=== PATIENT | male | born 1940 | race Caucasian/White ===

== ENCOUNTER 2018-01-20 10:42 | Inpatient (IN) | payer MEDICARE, OTHER ==
[~2018-01-20] VITALS: Ht 182.9 cm; Wt 107.2 kg
[2018-01-20] MEDS ORDERED: KETOROLAC TROMETH 30 MG/ML 1ML VIAL IV ONE (14:30)
[2018-01-20] MEDS ORDERED: CLINDAMYCIN 600MG IV 50 ML IV ONE (14:30)
[2018-01-20 15:07] LABS: Basophils # (auto) 0 uL; Basophils % (auto) 0.2 % (0.0-2.0); Eosinophils # (auto) 0 uL; Eosinophils % (auto) 0.3 % (0.0-7.0); Hematocrit 32.2 % (41.0-53.0); Hemoglobin 10.9 g/dL (13.5-17.5); Lymphocytes # (auto) 1.7 uL; Lymphocytes % (auto) 10.7 % (10.0-50.0); Mean Corpuscular Hgb Conc. 33.9 g/dL (32.0-36.0); Mean Corpuscular Volume 91.3 fL (80.0-100.0); Monocytes # (auto) 1.3 uL; Monocytes % (auto) 8.1 % (0.0-12.0); Neutrophils # (auto) 13.1 uL; Neutrophils % (auto) 80.7 % (37.0-80.0); Platelet Count (auto) 253 10^3/uL (140-450); Red Blood Cells 3.53 10^6/uL (4.5-5.90); Red Cell Distribution Width 13.9 % (11.8-14.3); White Blood Cell 16.2 10^3/uL (4.4-10.8)
[2018-01-20 15:09] LABS: Urine Bacteria NONE SEEN /hpf (None Seen); Urine Blood Negative /uL (Negative); Urine Mucus FEW (None Seen); Urine Specific Gravity 1.007 (1.001-1.035); Urine WBC <1 /hpf (0 - 3)
[2018-01-20 15:16] LABS: INR 0.92 (0.9-1.15); Partial Thromboplastin Time 31.5 sec (23.78-33.04); Prothrombin Time 9.9 sec (9.27-12.13)
[2018-01-20 15:24] LABS: BUN/Creatinine Ratio 24.8; Bilirubin, Total 0.6 mg/dL (0.2-1.0); Calcium 8.4 mg/dL (8.5-10.1); Magnesium 2.2 mg/dL (1.6-2.6); Total Protein 7.6 g/dL (6.4-8.2); Uric Acid 10.2 mg/dL (3.5-7.2)
[2018-01-20] MEDS ORDERED: cefTRIAXone 1GM/10ml IVPUSH 10 ML IV ONE (17:00)
[2018-01-20] MEDS ORDERED: POTASSIUM EFFERVESENT TAB 25 MEQ PO ONE (17:00)
[2018-01-20] MEDS ORDERED: AZITHROMYCIN 500MG/ 250ML 250 ML IV ONE (17:45)
[2018-01-20] MEDS ORDERED: ACETAMINOPHEN 325 MG TAB PO PRN (19:45)
[2018-01-20] MEDS ORDERED: DEXTROSE (50%) 50ML SYRG IV PRN (19:45)
[2018-01-20] MEDS ORDERED: cloNIDine HCL 0.1 MG TAB PO PRN (19:45)
[2018-01-20 22:20] VITALS: BP 146/70
[2018-01-21] MEDS: CLINDAMYCIN 600MG IV 50 ML IV SCH ×4 (00:42→22:09)
[2018-01-21] MEDS: InsuLIN REG 1unit/0.01ml Soln (100units/ml) SC SCH ×4 (01:06→18:59)
[2018-01-21 04:41] VITALS: BP 148/66
[2018-01-21] MEDS: HYDROcodone-ACET 5/325MG TAB PO PRN ×3 (04:54→20:16)
[2018-01-21] MEDS: ACCU-CHEK COMFORT CURVE STRIP VI SCH ×4 (05:49→18:59)
[2018-01-21 06:59] LABS: Basophils # (auto) 0 uL; Basophils % (auto) 0.1 % (0.0-2.0); Eosinophils # (auto) 0 uL; Eosinophils % (auto) 0.1 % (0.0-7.0); Hematocrit 27.7 % (41.0-53.0); Hemoglobin 9.5 g/dL (13.5-17.5); Lymphocytes # (auto) 1.1 uL; Lymphocytes % (auto) 6.9 % (10.0-50.0); Mean Corpuscular Hemoglobin 31.7 pg (28.0-32.0); Mean Corpuscular Hgb Conc. 34.4 g/dL (32.0-36.0); Monocytes # (auto) 1.3 uL; Monocytes % (auto) 8.6 % (0.0-12.0); Neutrophils % (auto) 84.3 % (37.0-80.0); Platelet Count (auto) 250 10^3/uL (140-450); Red Blood Cells 3.01 10^6/uL (4.5-5.90); Red Cell Distribution Width 13.8 % (11.8-14.3); White Blood Cell 15.5 10^3/uL (4.4-10.8)
[2018-01-21 07:25] LABS: Albumin 2.5 g/dL (3.4-5.0); BUN/Creatinine Ratio 25.6; Bilirubin, Total 0.6 mg/dL (0.2-1.0); Calcium 7.9 mg/dL (8.5-10.1); Potassium 3.1 mmol/L (3.5-5.1); Total Protein 6.5 g/dL (6.4-8.2)
[2018-01-21 08:00] VITALS: BP 147/56
[2018-01-21 09:00] VITALS: BP 147/56
[2018-01-21] MEDS ORDERED: AZITHROMYCIN 500MG/ 250ML 250 ML IV SCH (10:00)
[2018-01-21] MEDS: cefTRIAXone 1GM/10ml IVPUSH 10 ML IV SCH (12:29)
[2018-01-21] MEDS: ENOXAPARIN SOD 40 MG/0.4 ML SYRINGE SC SCH (12:30)
[2018-01-21 13:00] VITALS: BP 150/59
[2018-01-21] MEDS ORDERED: POTASSIUM CHL 20 Meq TABLET PO ONE (13:15)
[2018-01-21] MEDS ORDERED: SODIUM CHLORIDE 0.9% 1,000 ML IV ONE (13:30)
[2018-01-21 17:00] VITALS: BP 142/58
[2018-01-21] MEDS ORDERED: FURO40TA4 PO (17:31)
[2018-01-21] MEDS ORDERED: CLOP75TA41 PO (17:31)
[2018-01-21] MEDS ORDERED: TRIA0.1P11 TOP (17:31)
[2018-01-21] MEDS ORDERED: INSU100I24 SC (17:31)
[2018-01-21] MEDS ORDERED: GLIP-116 PO (17:31)
[2018-01-21] MEDS ORDERED: METO-158 PO (17:31)
[2018-01-21] MEDS ORDERED: SERT-274 PO (17:31)
[2018-01-21] MEDS ORDERED: DIVA500T59 PO (17:31)
[2018-01-21] MEDS ORDERED: OMEG100078 PO (17:31)
[2018-01-21] MEDS ORDERED: AMLO5TAB13 PO (17:31)
[2018-01-21] MEDS ORDERED: RIVA3CAP4 PO (17:31)
[2018-01-21] MEDS ORDERED: HCTZ25T PO (17:31)
[2018-01-21] MEDS ORDERED: POTA10TA51 PO (17:31)
[2018-01-21 22:00] VITALS: BP 154/87
[2018-01-22] MEDS: ACCU-CHEK COMFORT CURVE STRIP VI SCH ×4 (00:15→18:00)
[2018-01-22] MEDS: TEMAZEPAM 15 MG CAP PO PRN (00:26)
[2018-01-22] MEDS: InsuLIN REG 1unit/0.01ml Soln (100units/ml) SC SCH ×4 (00:26→18:00)
[2018-01-22 05:00] VITALS: BP 120/67
[2018-01-22] MEDS: HYDROcodone-ACET 5/325MG TAB PO PRN ×3 (05:02→22:44)
[2018-01-22] MEDS: CLINDAMYCIN 600MG IV 50 ML IV SCH ×3 (06:22→22:42)
[2018-01-22 07:12] LABS: Urine Amorphous Crystal MOD /hpf (None Seen); Urine Bacteria NONE SEEN /hpf (None Seen); Urine Blood 2+ /uL (Negative); Urine Mucus FEW (None Seen); Urine Specific Gravity 1.015 (1.001-1.035); Urine WBC 5 /hpf (0 - 3)
[2018-01-22 07:24] LABS: Protein, Urine 73.8 mg/dL (0.0-11.9)
[2018-01-22 08:00] VITALS: BP 142/65
[2018-01-22] MEDS: ENOXAPARIN SOD 40 MG/0.4 ML SYRINGE SC SCH (10:00)
[2018-01-22] MEDS: cefTRIAXone 1GM/10ml IVPUSH 10 ML IV SCH (10:00)
[2018-01-22] MEDS ORDERED: POTASSIUM CHL 20 Meq TABLET PO ONE (11:53)
[2018-01-22 12:00] VITALS: BP 143/63
[2018-01-22] MEDS ORDERED: amLODIPine BESYLATE 5 MG TAB PO ONE (12:00)
[2018-01-22] MEDS ORDERED: CLOPIDOGREL BISULFATE 75 MG TAB PO ONE (12:00)
[2018-01-22] MEDS ORDERED: SERTRALINE HCL 50 MG TAB PO ONE (12:00)
[2018-01-22] MEDS: DOCUSATE SOD 100 MG CAP PO PRN (12:58)
[2018-01-22] MEDS: METOPROLOL TARTRATE 50 MG TAB PO SCH ×2 (13:02→22:43)
[2018-01-22] MEDS ORDERED: LORazepam 2MG/ML-1ML VIAL IV PRN (14:00)
[2018-01-22 14:18] LABS: Basophils # (auto) 0 uL; Basophils % (auto) 0.3 % (0.0-2.0); Eosinophils # (auto) 0 uL; Eosinophils % (auto) 0.1 % (0.0-7.0); Hematocrit 28.5 % (41.0-53.0); Hemoglobin 9.5 g/dL (13.5-17.5); Lymphocytes # (auto) 0.7 uL; Lymphocytes % (auto) 4.2 % (10.0-50.0); Mean Corpuscular Hemoglobin 30.7 pg (28.0-32.0); Mean Corpuscular Hgb Conc. 33.2 g/dL (32.0-36.0); Mean Corpuscular Volume 92.4 fL (80.0-100.0); Monocytes # (auto) 1.4 uL; Monocytes % (auto) 7.7 % (0.0-12.0); Neutrophils # (auto) 15.8 uL; Neutrophils % (auto) 87.7 % (37.0-80.0); Platelet Count (auto) 294 10^3/uL (140-450); Red Blood Cells 3.09 10^6/uL (4.5-5.90); Red Cell Distribution Width 13.5 % (11.8-14.3)
[2018-01-22 14:52] LABS: Albumin 2.1 g/dL (3.4-5.0); BUN/Creatinine Ratio 24.6; Bilirubin, Total 0.5 mg/dL (0.2-1.0); Calcium 7.7 mg/dL (8.5-10.1); Phosphorus 2.9 mg/dL (2.5-4.90); Potassium 3.7 mmol/L (3.5-5.1); Total Protein 6.4 g/dL (6.4-8.2); Uric Acid 9.5 mg/dL (3.5-7.2)
[2018-01-22 16:00] VITALS: BP 150/61
[2018-01-22 22:00] VITALS: BP 136/55
[2018-01-22] MEDS: DONEPEZIL HYDROCHLORIDE 5 MG TAB PO SCH (22:42)
[2018-01-22] MEDS: ATORVASTATIN 20 MG TAB PO SCH (22:43)
[2018-01-23] MEDS: ACCU-CHEK COMFORT CURVE STRIP VI SCH ×5 (00:27→23:53)
[2018-01-23] MEDS: TEMAZEPAM 15 MG CAP PO PRN (00:28)
[2018-01-23] MEDS: InsuLIN REG 1unit/0.01ml Soln (100units/ml) SC SCH ×5 (00:41→23:54)
[2018-01-23 05:00] VITALS: BP 142/50
[2018-01-23] MEDS: CLINDAMYCIN 600MG IV 50 ML IV SCH ×3 (06:16→21:57)
[2018-01-23] MEDS ORDERED: methylPREDNISolone SOD SUCC 125 MG/2 ML VL IV ONE (07:00)
[2018-01-23 07:02] LABS: Basophils # (auto) 0.1 uL; Basophils % (auto) 0.6 % (0.0-2.0); Eosinophils # (auto) 0.3 uL; Eosinophils % (auto) 1.5 % (0.0-7.0); Hematocrit 28.6 % (41.0-53.0); Hemoglobin 9.6 g/dL (13.5-17.5); Lymphocytes # (auto) 1.2 uL; Lymphocytes % (auto) 6.6 % (10.0-50.0); Mean Corpuscular Hemoglobin 31.2 pg (28.0-32.0); Mean Corpuscular Hgb Conc. 33.5 g/dL (32.0-36.0); Mean Corpuscular Volume 93.1 fL (80.0-100.0); Monocytes # (auto) 1.8 uL; Monocytes % (auto) 10.3 % (0.0-12.0); Neutrophils # (auto) 14.3 uL; Platelet Count (auto) 316 10^3/uL (140-450); Red Blood Cells 3.07 10^6/uL (4.5-5.90); Red Cell Distribution Width 13.8 % (11.8-14.3); White Blood Cell 17.7 10^3/uL (4.4-10.8)
[2018-01-23] MEDS ORDERED: LORazepam 2MG/ML-1ML VIAL IV ONE (07:15)
[2018-01-23 07:48] LABS: Albumin 2.1 g/dL (3.4-5.0); BUN/Creatinine Ratio 24.3; Bilirubin, Total 0.6 mg/dL (0.2-1.0); Calcium 8.2 mg/dL (8.5-10.1); Potassium 4.4 mmol/L (3.5-5.1); Total Protein 6.7 g/dL (6.4-8.2)
[2018-01-23 08:00] VITALS: BP 143/76
[2018-01-23] MEDS: cefTRIAXone 1GM/10ml IVPUSH 10 ML IV SCH (08:01)
[2018-01-23] MEDS: CLOPIDOGREL BISULFATE 75 MG TAB PO SCH (08:01)
[2018-01-23] MEDS: METOPROLOL TARTRATE 50 MG TAB PO SCH ×2 (08:01→21:59)
[2018-01-23] MEDS: ENOXAPARIN SOD 40 MG/0.4 ML SYRINGE SC SCH ×2 (08:01→10:00)
[2018-01-23] MEDS: SERTRALINE HCL 50 MG TAB PO SCH (08:01)
[2018-01-23] MEDS: amLODIPine BESYLATE 5 MG TAB PO SCH (08:01)
[2018-01-23 09:39] LABS: Folate (Folic Acid) 14.59 ng/mL (5.38-24)
[2018-01-23] MEDS: ALBUTEROL SULF 2.5 MG/0.5ML(0.5%) NEB SOLN NEB SCH ×5 (10:13→22:12)
[2018-01-23] MEDS: IPRATROPIUM BROM 0.5 MG/2.5ML INH SOL NEB SCH ×5 (10:13→22:12)
[2018-01-23] MEDS ORDERED: CYANOCOBALAMIN (B-12) 1000 MCG/1 ML VIAL IM ONE (10:15)
[2018-01-23] MEDS ORDERED: AZITHROMYCIN 500MG/ 250ML 250 ML IV ONE (11:00)
[2018-01-23 12:00] VITALS: BP 132/62
[2018-01-23] MEDS: methylPREDNISolone SOD SUCC 125 MG/2 ML VL IV SCH ×2 (15:00→21:57)
[2018-01-23 16:00] VITALS: BP 132/54
[2018-01-23 20:12] VITALS: BP 132/54
[2018-01-23] MEDS: ATORVASTATIN 20 MG TAB PO SCH (21:58)
[2018-01-23] MEDS: DONEPEZIL HYDROCHLORIDE 5 MG TAB PO SCH (21:58)
[2018-01-23 22:00] VITALS: BP_SYST 147; BP_DIAS 36; BP_DIAS 57
[2018-01-24] MEDS ORDERED: SODIUM CHLORIDE 0.9% 500 ML IV ONE (00:15)
[2018-01-24] MEDS ORDERED: DEXTROSE (50%) 50ML SYRG IV PRN ×2 (00:15→08:15)
[2018-01-24] MEDS: IPRATROPIUM BROM 0.5 MG/2.5ML INH SOL NEB SCH ×6 (01:57→22:09)
[2018-01-24] MEDS: ALBUTEROL SULF 2.5 MG/0.5ML(0.5%) NEB SOLN NEB SCH ×6 (01:57→22:09)
[2018-01-24] MEDS: ACCU-CHEK COMFORT CURVE STRIP VI SCH ×5 (03:41→20:10)
[2018-01-24] MEDS: InsuLIN REG 1unit/0.01ml Soln (100units/ml) SC SCH ×5 (03:42→20:09)
[2018-01-24 05:00] VITALS: BP 146/53
[2018-01-24] MEDS: methylPREDNISolone SOD SUCC 125 MG/2 ML VL IV SCH ×2 (06:04→22:09)
[2018-01-24] MEDS: CLINDAMYCIN 600MG IV 50 ML IV SCH ×3 (06:04→22:07)
[2018-01-24 06:23] LABS: Hematocrit 25.7 % (41.0-53.0); Hemoglobin 8.8 g/dL (13.5-17.5); Mean Corpuscular Hemoglobin 31.8 pg (28.0-32.0); Mean Corpuscular Hgb Conc. 34.2 g/dL (32.0-36.0); Platelet Count (auto) 327 10^3/uL (140-450); Red Blood Cells 2.76 10^6/uL (4.5-5.90); Red Cell Distribution Width 13.8 % (11.8-14.3); White Blood Cell 17.5 10^3/uL (4.4-10.8)
[2018-01-24 06:25] LABS: Band Neutrophils % (manual) 0; Basophils % (manual) 0 (0.0-2.0); Blast Cells 0; Eosinophils % (manual) 0 (0-7); Metamyelocytes % 0; Myelocytes % 0; Promyelocytes % 0; Reactive Lymphocytes 0
[2018-01-24 06:38] LABS: Albumin 1.9 g/dL (3.4-5.0); BUN/Creatinine Ratio 29.9; Calcium 8.6 mg/dL (8.5-10.1); Potassium 3.6 mmol/L (3.5-5.1)
[2018-01-24 06:41] LABS: Bilirubin, Total 0.2 mg/dL (0.2-1.0); Total Protein 6.2 g/dL (6.4-8.2)
[2018-01-24 06:49] LABS: Lymphocytes % (manual) 2 (10.0-50.0); Monocytes % (manual) 3 (0-12)
[2018-01-24] MEDS: cefTRIAXone 1GM/10ml IVPUSH 10 ML IV SCH (07:53)
[2018-01-24] MEDS ORDERED: InsuLIN REG 1unit/0.01ml Soln (100units/ml) IV ONE (08:00)
[2018-01-24] MEDS: AZITHROMYCIN 500MG/ 250ML 250 ML IV SCH (08:23)
[2018-01-24] MEDS: amLODIPine BESYLATE 5 MG TAB PO SCH (08:23)
[2018-01-24] MEDS: METOPROLOL TARTRATE 50 MG TAB PO SCH ×2 (08:23→22:09)
[2018-01-24] MEDS: ENOXAPARIN SOD 40 MG/0.4 ML SYRINGE SC SCH (08:24)
[2018-01-24] MEDS: CLOPIDOGREL BISULFATE 75 MG TAB PO SCH (08:24)
[2018-01-24] MEDS: SERTRALINE HCL 50 MG TAB PO SCH (08:24)
[2018-01-24] MEDS ORDERED: ADENOSINE 92 MG in GIVE UN-DILUTED 0 ML IV STA (08:26)
[2018-01-24] MEDS: CYANOCOBALAMIN 500 MCG TAB PO SCH (08:28)
[2018-01-24 08:40] VITALS: BP 134/46
[2018-01-24] MEDS: COLCHICINE 0.6 MG CAP PO SCH ×2 (11:56→22:10)
[2018-01-24] MEDS: POTASSIUM CHL 20MEQ/100ML 100 ML IV SCH ×2 (11:56→14:13)
[2018-01-24 13:00] VITALS: BP 138/48
[2018-01-24] MEDS ORDERED: methylPREDNISolone SOD SUCC 125 MG/2 ML VL IV ONE (14:45)
[2018-01-24 17:00] VITALS: BP 131/43
[2018-01-24 22:00] VITALS: BP 141/56
[2018-01-24] MEDS: DONEPEZIL HYDROCHLORIDE 5 MG TAB PO SCH (22:09)
[2018-01-24] MEDS: ATORVASTATIN 20 MG TAB PO SCH (22:09)
[2018-01-25] MEDS: InsuLIN REG 1unit/0.01ml Soln (100units/ml) SC SCH ×6 (00:01→20:00)
[2018-01-25] MEDS ORDERED: InsuLIN REG 1unit/0.01ml Soln (100units/ml) IV ONE (00:30)
[2018-01-25] MEDS: ALBUTEROL SULF 2.5 MG/0.5ML(0.5%) NEB SOLN NEB SCH ×6 (02:26→22:10)
[2018-01-25] MEDS: IPRATROPIUM BROM 0.5 MG/2.5ML INH SOL NEB SCH ×6 (02:26→22:10)
[2018-01-25] MEDS: ACCU-CHEK COMFORT CURVE STRIP VI SCH ×6 (04:06→20:00)
[2018-01-25 05:00] VITALS: BP 162/67
[2018-01-25] MEDS: CLINDAMYCIN 600MG IV 50 ML IV SCH (05:34)
[2018-01-25] MEDS: ONDANSETRON HCL 4 MG/2 ML VIAL IV PRN (06:11)
[2018-01-25 06:18] LABS: Hemoglobin 9.2 g/dL (13.5-17.5); Mean Corpuscular Hemoglobin 31.1 pg (28.0-32.0); Mean Corpuscular Hgb Conc. 33.9 g/dL (32.0-36.0); Mean Corpuscular Volume 91.7 fL (80.0-100.0); Platelet Count (auto) 433 10^3/uL (140-450); Red Blood Cells 2.95 10^6/uL (4.5-5.90); Red Cell Distribution Width 13.8 % (11.8-14.3); White Blood Cell 21.5 10^3/uL (4.4-10.8)
[2018-01-25 06:21] LABS: Band Neutrophils % (manual) 0; Basophils % (manual) 0 (0.0-2.0); Blast Cells 0; Eosinophils % (manual) 0 (0-7); Metamyelocytes % 0; Myelocytes % 0; Promyelocytes % 0; Reactive Lymphocytes 0
[2018-01-25 06:36] LABS: Lymphocytes % (manual) 1 (10.0-50.0); Monocytes % (manual) 3 (0-12)
[2018-01-25 07:01] LABS: Albumin 2.1 g/dL (3.4-5.0); BUN/Creatinine Ratio 37.8; Bilirubin, Total 0.2 mg/dL (0.2-1.0); Calcium 8.5 mg/dL (8.5-10.1); Potassium 3.7 mmol/L (3.5-5.1); Total Protein 6.5 g/dL (6.4-8.2)
[2018-01-25 07:55] VITALS: BP 137/59
[2018-01-25 08:00] VITALS: BP 145/64
[2018-01-25] MEDS: cefTRIAXone 1GM/10ml IVPUSH 10 ML IV SCH (09:18)
[2018-01-25] MEDS: AZITHROMYCIN 500MG/ 250ML 250 ML IV SCH (09:19)
[2018-01-25] MEDS: SERTRALINE HCL 50 MG TAB PO SCH (09:19)
[2018-01-25] MEDS: ENOXAPARIN SOD 40 MG/0.4 ML SYRINGE SC SCH (09:19)
[2018-01-25] MEDS: CLOPIDOGREL BISULFATE 75 MG TAB PO SCH (09:20)
[2018-01-25] MEDS: COLCHICINE 0.6 MG CAP PO SCH ×2 (09:20→22:14)
[2018-01-25] MEDS: amLODIPine BESYLATE 5 MG TAB PO SCH (09:21)
[2018-01-25] MEDS: CYANOCOBALAMIN 500 MCG TAB PO SCH (09:21)
[2018-01-25] MEDS: METOPROLOL TARTRATE 50 MG TAB PO SCH ×2 (09:21→21:11)
[2018-01-25] MEDS: methylPREDNISolone SOD SUCC 125 MG/2 ML VL IV SCH ×2 (09:41→21:11)
[2018-01-25] MEDS ORDERED: POTASSIUM CHL 20 Meq TABLET PO ONE (10:30)
[2018-01-25 11:54] VITALS: BP 144/69
[2018-01-25] MEDS ORDERED: VANCOMYCIN PER PHARMACY 0 MG IV SCH (12:00)
[2018-01-25] MEDS: VANCOMYCIN 1GM/250ML 250 ML IV SCH (13:31)
[2018-01-25 17:00] VITALS: BP 134/58
[2018-01-25] MEDS: DONEPEZIL HYDROCHLORIDE 5 MG TAB PO SCH (21:10)
[2018-01-25] MEDS: ATORVASTATIN 20 MG TAB PO SCH (21:10)
[2018-01-25 22:00] VITALS: BP 144/58
[2018-01-25] MEDS: INSULIN LANTUS (GLARGINE) 1 /0.01ml (100units/ml) SC SCH (22:01)
[2018-01-26] MEDS: ONDANSETRON HCL 4 MG/2 ML VIAL IV PRN ×2 (00:52→22:33)
[2018-01-26] MEDS: DOCUSATE SOD 100 MG CAP PO PRN (00:52)
[2018-01-26] MEDS ORDERED: PROMETHAZINE HCL 25 MG/ML 1ML IV ONE (02:00)
[2018-01-26] MEDS: IPRATROPIUM BROM 0.5 MG/2.5ML INH SOL NEB SCH ×6 (02:12→22:04)
[2018-01-26] MEDS: ALBUTEROL SULF 2.5 MG/0.5ML(0.5%) NEB SOLN NEB SCH ×6 (02:13→22:04)
[2018-01-26] MEDS: ACCU-CHEK COMFORT CURVE STRIP VI SCH ×6 (04:03→22:26)
[2018-01-26] MEDS: InsuLIN REG 1unit/0.01ml Soln (100units/ml) SC SCH ×6 (04:03→22:25)
[2018-01-26 04:50] VITALS: BP 104/47
[2018-01-26 06:28] LABS: Basophils # (auto) 0 uL; Eosinophils # (auto) 0 uL; Hemoglobin 8.5 g/dL (13.5-17.5); Lymphocytes # (auto) 0.9 uL; Lymphocytes % (auto) 6.1 % (10.0-50.0); Mean Corpuscular Hemoglobin 31.1 pg (28.0-32.0); Mean Corpuscular Hgb Conc. 33.9 g/dL (32.0-36.0); Mean Corpuscular Volume 91.9 fL (80.0-100.0); Monocytes # (auto) 1.1 uL; Monocytes % (auto) 7.2 % (0.0-12.0); Neutrophils # (auto) 13.4 uL; Neutrophils % (auto) 86.7 % (37.0-80.0); Platelet Count (auto) 441 10^3/uL (140-450); Red Blood Cells 2.71 10^6/uL (4.5-5.90); Red Cell Distribution Width 13.7 % (11.8-14.3); White Blood Cell 15.5 10^3/uL (4.4-10.8)
[2018-01-26 06:50] LABS: Albumin 2.1 g/dL (3.4-5.0); BUN/Creatinine Ratio 38.9; Bilirubin, Total 0.3 mg/dL (0.2-1.0); Calcium 8.2 mg/dL (8.5-10.1); Potassium 4.1 mmol/L (3.5-5.1); Total Protein 6.1 g/dL (6.4-8.2)
[2018-01-26] MEDS ORDERED: ADENOSINE 93 MG in GIVE UN-DILUTED 0 ML IV ONE (08:30)
[2018-01-26 09:00] VITALS: BP 117/45
[2018-01-26] MEDS: cefTRIAXone 1GM/10ml IVPUSH 10 ML IV SCH (09:00)
[2018-01-26] MEDS: ENOXAPARIN SOD 40 MG/0.4 ML SYRINGE SC SCH (10:00)
[2018-01-26] MEDS: METOPROLOL TARTRATE 50 MG TAB PO SCH ×2 (10:00→22:49)
[2018-01-26] MEDS: COLCHICINE 0.6 MG CAP PO SCH ×2 (11:01→22:35)
[2018-01-26] MEDS: CYANOCOBALAMIN 500 MCG TAB PO SCH ×2 (11:03→22:35)
[2018-01-26] MEDS: amLODIPine BESYLATE 5 MG TAB PO SCH (11:03)
[2018-01-26] MEDS: SERTRALINE HCL 50 MG TAB PO SCH (11:03)
[2018-01-26] MEDS: PANTOPRAZOLE 40 MG/10 ML VIAL IV SCH (11:04)
[2018-01-26] MEDS: ASCORBIC ACID 500 MG TAB PO SCH ×2 (11:04→22:35)
[2018-01-26] MEDS: MULTIPLE VITAMINS W/ MINERALS TAB PO SCH ×2 (11:04→22:47)
[2018-01-26] MEDS: CLOPIDOGREL BISULFATE 75 MG TAB PO SCH (11:04)
[2018-01-26] MEDS: methylPREDNISolone SOD SUCC 125 MG/2 ML VL IV SCH ×2 (11:04→22:47)
[2018-01-26] MEDS ORDERED: VANCOMYCIN 1GM/250ML 250 ML IV ONE (12:29)
[2018-01-26] MEDS: VANCOMYCIN 1GM/250ML 250 ML IV SCH (12:31)
[2018-01-26 13:00] VITALS: BP 137/72
[2018-01-26 17:00] VITALS: BP 136/55
[2018-01-26 21:53] VITALS: BP 136/55
[2018-01-26 22:00] VITALS: BP 136/64
[2018-01-26] MEDS: ATORVASTATIN 20 MG TAB PO SCH (22:35)
[2018-01-26] MEDS: DONEPEZIL HYDROCHLORIDE 5 MG TAB PO SCH (22:35)
[2018-01-26] MEDS: INSULIN LANTUS (GLARGINE) 1 /0.01ml (100units/ml) SC SCH (22:46)
[2018-01-27] MEDS: ACCU-CHEK COMFORT CURVE STRIP VI SCH ×4 (00:30→11:52)
[2018-01-27] MEDS: IPRATROPIUM BROM 0.5 MG/2.5ML INH SOL NEB SCH ×3 (02:00→10:04)
[2018-01-27] MEDS: ALBUTEROL SULF 2.5 MG/0.5ML(0.5%) NEB SOLN NEB SCH ×3 (02:00→10:04)
[2018-01-27] MEDS: InsuLIN REG 1unit/0.01ml Soln (100units/ml) SC SCH ×4 (04:00→11:53)
[2018-01-27 05:00] VITALS: BP 125/48
[2018-01-27 06:41] LABS: Hematocrit 27.1 % (41.0-53.0); Hemoglobin 9.1 g/dL (13.5-17.5); Mean Corpuscular Hemoglobin 31.2 pg (28.0-32.0); Mean Corpuscular Hgb Conc. 33.5 g/dL (32.0-36.0); Mean Corpuscular Volume 93.1 fL (80.0-100.0); Platelet Count (auto) 429 10^3/uL (140-450); Red Blood Cells 2.91 10^6/uL (4.5-5.90); Red Cell Distribution Width 14.2 % (11.8-14.3); White Blood Cell 11.1 10^3/uL (4.4-10.8)
[2018-01-27 06:54] LABS: Albumin 2.2 g/dL (3.4-5.0); Calcium 7.9 mg/dL (8.5-10.1)
[2018-01-27 06:56] LABS: BUN/Creatinine Ratio 40.9
[2018-01-27 06:58] LABS: Band Neutrophils % (manual) 0; Basophils % (manual) 0 (0.0-2.0); Bilirubin, Total 0.4 mg/dL (0.2-1.0); Blast Cells 0; Eosinophils % (manual) 0 (0-7); Metamyelocytes % 0; Monocytes % (manual) 0 (0-12); Myelocytes % 0; Promyelocytes % 0; Reactive Lymphocytes 0
[2018-01-27 07:35] LABS: Lymphocytes % (manual) 2 (10.0-50.0)
[2018-01-27] MEDS: cefTRIAXone 1GM/10ml IVPUSH 10 ML IV SCH (08:24)
[2018-01-27] MEDS: amLODIPine BESYLATE 5 MG TAB PO SCH (10:00)
[2018-01-27] MEDS: ASCORBIC ACID 500 MG TAB PO SCH (10:02)
[2018-01-27] MEDS: COLCHICINE 0.6 MG CAP PO SCH (10:02)
[2018-01-27] MEDS: MULTIPLE VITAMINS W/ MINERALS TAB PO SCH (10:02)
[2018-01-27] MEDS: CLOPIDOGREL BISULFATE 75 MG TAB PO SCH (10:02)
[2018-01-27] MEDS: SERTRALINE HCL 50 MG TAB PO SCH (10:02)
[2018-01-27] MEDS: PANTOPRAZOLE 40 MG/10 ML VIAL IV SCH (10:03)
[2018-01-27] MEDS: ENOXAPARIN SOD 40 MG/0.4 ML SYRINGE SC SCH (10:03)
[2018-01-27] MEDS: methylPREDNISolone SOD SUCC 125 MG/2 ML VL IV SCH (10:04)
[2018-01-27] MEDS: METOPROLOL TARTRATE 50 MG TAB PO SCH (10:11)
[2018-01-27 13:16] VITALS: BP 160/64
[2018-01-29 05:08] LABS: Methylmalonic Acid 339 nmol/L (0-378)
== END 2018-01-27 14:25 | disposition home health service (06) | DRG 682 ==
LOC: EDBD 10:42 → ER 10:42 → OVERFLOW 10:43 → EAST 19:47
PROVIDERS: ADMIT Nurse Practitioner; ATTEND Family Medicine
PROC: 4A00X4Z Measurement of Central Nervous Electrical Activity, External Approach (ICD-10-PCS; principal; 2018-01-23)
DX: N17.0 Acute kidney failure with tubular necrosis (principal); J18.9 Pneumonia, unspecified organism; L03.114 Cellulitis of left upper limb; E87.1 Hypo-osmolality and hyponatremia; N18.3 Chronic kidney disease, stage 3 (moderate); E87.6 Hypokalemia; F02.80 Dementia in other diseases classified elsewhere, unspecified severity, without behavioral disturbance, psychotic disturbance, mood disturbance, and anxiety; G30.9 Alzheimer's disease, unspecified; T50.2X5A Adverse effect of carbonic-anhydrase inhibitors, benzothiadiazides and other diuretics, initial encounter; E11.65 Type 2 diabetes mellitus with hyperglycemia; Z88.7 Allergy status to serum and vaccine; Z91.048 Other nonmedicinal substance allergy status; D63.1 Anemia in chronic kidney disease; E11.22 Type 2 diabetes mellitus with diabetic chronic kidney disease; E78.00 Pure hypercholesterolemia, unspecified; E86.0 Dehydration; Z86.73 Personal history of transient ischemic attack (TIA), and cerebral infarction without residual deficits; I12.9 Hypertensive chronic kidney disease with stage 1 through stage 4 chronic kidney disease, or unspecified chronic kidney disease; I51.7 Cardiomegaly; M10.9 Gout, unspecified; M48.02 Spinal stenosis, cervical region; M47.812 Spondylosis without myelopathy or radiculopathy, cervical region; M77.9 Enthesopathy, unspecified; Z79.02 Long term (current) use of antithrombotics/antiplatelets; Z79.4 Long term (current) use of insulin; Z79.899 Other long term (current) drug therapy
CPT/HCPCS: 36415; 70450; 70551; 71045; 72125; 72141; 73100; 76775; 78582; 80053; 80202; 81001; 82306; 82570; 82607; 82746; 82962; 83036; 83520; 83735; 83970; 84100; 84156; 84300; 84443; 84550; 85007; 85025; 85027; 85379; 85610; 85652; 85730; 86256; 87040; 87070; 87086; 87205; 93971; 94640; 94761; 95819; 96365; 96366; 96375; 97110; 97530; C9113; J0153; J0696; J1815; J1885; J2405; J3480; J3490

== ENCOUNTER 2023-03-26 14:59 | Inpatient (IN) | payer MEDICARE ==
[~2023-03-26] VITALS: Ht 170.2 cm; Wt 107.4 kg
[~2023-03-26 14:59] MED LIST: AMLO1TAB22 PO; CLOP75TA70 PO; DIVA500T13 PO; FURO40TA4 PO; GLIP10TA9 PO; HYDR25TA5 PO; INSU100I24 SC; METO-158 PO; OMEG-20 PO; POTA10TA51 PO; RIVA1CAP3 PO; SERT-206 PO; TRIA0.1P2 TOP
[2023-03-26] MEDS ORDERED: IPRATROPIUM BROM 0.5 MG/2.5ML INH SOL NEB ONE (15:15)
[2023-03-26] MEDS ORDERED: ALBUTEROL MEDNEB 2.5 mg/3ml NEB NEB ONE (15:15)
[2023-03-26] MEDS ORDERED: DexAMETHasone INJECTION 10 MG in D5W 5% 50 ML IV ONE (15:15)
[2023-03-26 15:47] VITALS: PULSE 83; RESP 32; O2SAT 97
[2023-03-26 16:33] LABS: Basophils # (auto) 0.1 10 ^3/uL (0-0.2); Basophils % (auto) 0.6 % (0.0-2.0); Eosinophils # (auto) 0.1 10 ^3/uL (0-0.8); Eosinophils % (auto) 0.7 % (0.0-7.0); Hematocrit 27.9 % (41.0-53.0); Lymphocytes # (auto) 2.1 10 ^3/uL (0.4-5.4); Lymphocytes % (auto) 17.7 % (10.0-50.0); Mean Corpuscular Hemoglobin 30.1 pg (28.0-32.0); Mean Corpuscular Hgb Conc. 32.1 g/dL (32.0-36.0); Mean Corpuscular Volume 93.6 fL (80.0-100.0); Monocytes # (auto) 1.1 10 ^3/uL (0-1.3); Monocytes % (auto) 8.7 % (0.0-12.0); Neutrophils # (auto) 8.8 10 ^3/uL (1.6-8.6); Neutrophils % (auto) 72.3 % (37.0-80.0); Nucleated Red Blood Cells % 0.1 %; Red Blood Cells 2.98 10^6/uL (4.5-5.90); Red Cell Distribution Width 14.3 % (11.8-14.3); White Blood Cell 12.1 10^3/uL (4.4-10.8)
[2023-03-26 16:47] LABS: Albumin 3.7 g/dL (3.2-4.8); Alkaline Phosphatase 50 U/L (46-116); Anion Gap 7 (5-15); Aspartate Aminotransferase 12 U/L (13-40); BUN/Creatinine Ratio 12.3 (10.0-20.0); Blood Urea Nitrogen 49 mg/dL (9-23); Calcium 8.4 mg/dL (8.7-10.4); Carbon Dioxide 25 mmol/L (20-30); Chloride 108 mmol/L (98-107); Glucose 267 mg/dL (74-106); Lipase 32 U/L (12-53); Magnesium 1.9 mg/dL (1.6-2.6); Potassium 3.7 mmol/L (3.5-5.1); Sodium 140 mmol/L (136-145)
[2023-03-26 16:48] LABS: Bilirubin, Total 0.4 mg/dL (0.2-1.0); Total Protein 5.7 g/dL (5.7-8.2)
[2023-03-26 16:52] LABS: Alanine Aminotransferase < 9 U/L (7-40)
[2023-03-26] MEDS ORDERED: LISINOPRIL 10 MG TAB PO ONE (17:00)
[2023-03-26] MEDS ORDERED: cloNIDine HCL 0.1 MG TAB PO ONE (17:00)
[2023-03-26] MEDS ORDERED: AZITHROMYCIN 500MG/ 250ML 250 ML IV ONE (17:45)
[2023-03-26] MEDS ORDERED: FUROSEMIDE 40 MG/4 ML VIAL IV ONE (17:45)
[2023-03-26 19:45] VITALS: PULSE 71; RESP 30; O2SAT 92
[2023-03-26 21:25] LABS: Urine Bacteria NONE SEEN /hpf (None Seen); Urine Blood Negative /uL (Negative); Urine Clarity Clear (Clear); Urine Color Colorless (Yellow); Urine Protein, UAD 2+ (Negative); Urine Specific Gravity 1.014 (1.001-1.035); Urine Urobilinogen Normal (Negative); Urine WBC 1 /hpf (0 - 3); Urine pH 5.5 (5.0-8.0)
[2023-03-26] MEDS ORDERED: ONDANSETRON HCL 4 MG/2 ML VIAL IV PRN (21:30)
[2023-03-26] MEDS ORDERED: DOCUSATE SOD 100 MG CAP PO PRN (21:30)
[2023-03-26] MEDS ORDERED: DEXTROSE (50%) 50ML SYRG IV PRN (21:30)
[2023-03-26] MEDS ORDERED: ACETAMINOPHEN 325 MG TAB PO PRN (21:30)
[2023-03-26] MEDS ORDERED: HYDROcodone-ACET 5/325MG TAB PO PRN (21:30)
[2023-03-26] MEDS: SODIUM CHLOR 0.9% PF (SALINE LOCK) 10ML VIAL/SYR IV SCH (22:37)
[2023-03-26] MEDS: FAMOTIDINE (10MG/ML) 2ML VL IV SCH (22:38)
[2023-03-26] MEDS: CARVEDILOL 12.5 MG TAB PO SCH (22:38)
[2023-03-26 22:49] VITALS: O2SAT 95
[2023-03-26 22:55] VITALS: BP 136/52; PULSE 64; RESP 20; TEMP 99; O2SAT 97
[2023-03-26] MEDS ORDERED: NITROGLYCERIN 0.4 MG SL TAB SL PRN (23:00)
[2023-03-26] MEDS ORDERED: MORPHINE SULFATE INJ 2 MG/ml SYRG IV PRN (23:00)
[2023-03-27] MEDS: InsuLIN REG 1unit/0.01ml Soln (100units/ml) SC SCH ×4 (00:43→17:54)
[2023-03-27 05:46] LABS: Basophils # (auto) 0 10 ^3/uL (0-0.2); Basophils % (auto) 0.3 % (0.0-2.0); Eosinophils # (auto) 0 10 ^3/uL (0-0.8); Hematocrit 26.5 % (41.0-53.0); Hemoglobin 8.7 g/dL (13.5-17.5); Lymphocytes # (auto) 0.8 10 ^3/uL (0.4-5.4); Lymphocytes % (auto) 10.8 % (10.0-50.0); Mean Corpuscular Hgb Conc. 32.9 g/dL (32.0-36.0); Mean Corpuscular Volume 94.5 fL (80.0-100.0); Monocytes # (auto) 0.5 10 ^3/uL (0-1.3); Monocytes % (auto) 6.7 % (0.0-12.0); Neutrophils # (auto) 6.5 10 ^3/uL (1.6-8.6); Neutrophils % (auto) 82.2 % (37.0-80.0); Red Blood Cells 2.81 10^6/uL (4.5-5.90); White Blood Cell 7.9 10^3/uL (4.4-10.8)
[2023-03-27] MEDS: ACCU-CHEK COMFORT CURVE STRIP VI SCH ×4 (05:58→17:52)
[2023-03-27] MEDS: SODIUM CHLOR 0.9% PF (SALINE LOCK) 10ML VIAL/SYR IV SCH ×3 (05:58→22:11)
[2023-03-27 06:02] LABS: Alkaline Phosphatase 42 U/L (46-116); Anion Gap 10 (5-15); BUN/Creatinine Ratio 11.2 (10.0-20.0); Blood Urea Nitrogen 43 mg/dL (9-23); Calcium 8.6 mg/dL (8.7-10.4); Carbon Dioxide 23 mmol/L (20-30); Chloride 107 mmol/L (98-107); Glucose 199 mg/dL (74-106); Potassium 3.9 mmol/L (3.5-5.1); Sodium 140 mmol/L (136-145)
[2023-03-27 06:03] LABS: Albumin 3.7 g/dL (3.2-4.8); Aspartate Aminotransferase 9 U/L (13-40); Bilirubin, Total 0.5 mg/dL (0.2-1.0); Total Protein 5.9 g/dL (5.7-8.2)
[2023-03-27 06:17] LABS: Alanine Aminotransferase < 9 U/L (7-40)
[2023-03-27 07:50] VITALS: PULSE 53; RESP 12; O2SAT 99
[2023-03-27] MEDS: CLOPIDOGREL BISULFATE 75 MG TAB PO SCH (10:23)
[2023-03-27] MEDS: ASPirin 81 mg TAB PO SCH (10:23)
[2023-03-27] MEDS: FAMOTIDINE (10MG/ML) 2ML VL IV SCH ×2 (10:24→22:11)
[2023-03-27] MEDS: FUROSEMIDE 40 MG/4 ML VIAL IV SCH (10:24)
[2023-03-27] MEDS: CARVEDILOL 12.5 MG TAB PO SCH ×2 (10:24→22:11)
[2023-03-27] MEDS: AZITHROMYCIN 500MG/ 250ML 250 ML IV SCH (10:25)
[2023-03-27] MEDS: DexAMETHasone SOD PHOS 10MG/1ML VIAL INJ IV SCH (10:25)
[2023-03-27 19:33] VITALS: PULSE 65; RESP 18; O2SAT 97
[2023-03-27 21:15] VITALS: O2SAT 96
[2023-03-28] VITALS (12 sets, daily range): BP systolic 108–178; BP diastolic 50–73; PULSE 53–75; RESP 18–21; TEMP 97.6–98.3; O2SAT 91–99
[2023-03-28] MEDS: ACCU-CHEK COMFORT CURVE STRIP VI SCH ×5 (01:01→23:40)
[2023-03-28] MEDS: InsuLIN REG 1unit/0.01ml Soln (100units/ml) SC SCH ×5 (01:02→23:44)
[2023-03-28] MEDS ORDERED: TEMAZEPAM 15 MG CAP PO ONE (03:00)
[2023-03-28 05:06] LABS: Protein, Urine 169.5 mg/dL (0.0-11.9)
[2023-03-28 05:08] LABS: Creatinine, Urine 70.79 mg/dL (30.0-125.0)
[2023-03-28 05:21] LABS: Urine Bacteria NONE SEEN /hpf (None Seen); Urine Blood 2+ /uL (Negative); Urine Clarity Clear (Clear); Urine Color Colorless (Yellow); Urine Protein, UAD 2+ (Negative); Urine Specific Gravity 1.014 (1.001-1.035); Urine Urobilinogen Normal (Negative); Urine WBC 3 /hpf (0 - 3); Urine pH 5.5 (5.0-8.0)
[2023-03-28] MEDS: SODIUM CHLOR 0.9% PF (SALINE LOCK) 10ML VIAL/SYR IV SCH ×3 (06:11→21:25)
[2023-03-28] MEDS: ASPirin 81 mg TAB PO SCH (09:40)
[2023-03-28] MEDS: CLOPIDOGREL BISULFATE 75 MG TAB PO SCH (09:41)
[2023-03-28] MEDS: cloNIDine HCL 0.1 MG TAB PO PRN ×2 (09:42→23:37)
[2023-03-28] MEDS: DexAMETHasone SOD PHOS 10MG/1ML VIAL INJ IV SCH (09:42)
[2023-03-28] MEDS: FUROSEMIDE 40 MG/4 ML VIAL IV SCH (09:42)
[2023-03-28] MEDS: FAMOTIDINE (10MG/ML) 2ML VL IV SCH ×2 (09:42→21:24)
[2023-03-28] MEDS: AZITHROMYCIN 500MG/ 250ML 250 ML IV SCH (09:43)
[2023-03-28] MEDS: CARVEDILOL 12.5 MG TAB PO SCH ×2 (10:00→21:24)
[2023-03-28] MEDS ORDERED: cefTRIAXone 1GM/50ML D5W 50 ML IV ONE (11:15)
[2023-03-28] MEDS: IPRATROPIUM BROM 0.5 MG/2.5ML INH SOL NEB PRN (19:35)
[2023-03-28] MEDS: ALBUTEROL MEDNEB 2.5 mg/3ml NEB NEB PRN (19:35)
[2023-03-29] VITALS (18 sets, daily range): BP systolic 123–167; BP diastolic 42–79; PULSE 59–80; RESP 16–20; TEMP 98–98.5; O2SAT 95–100
[2023-03-29] MEDS: ALBUTEROL MEDNEB 2.5 mg/3ml NEB NEB PRN ×2 (00:52→06:49)
[2023-03-29] MEDS: IPRATROPIUM BROM 0.5 MG/2.5ML INH SOL NEB PRN ×2 (00:52→06:49)
[2023-03-29] MEDS ORDERED: hydrALAZINE HCL 20 MG/ML VL IV ONE (01:15)
[2023-03-29] MEDS: ACCU-CHEK COMFORT CURVE STRIP VI SCH ×3 (06:10→17:35)
[2023-03-29] MEDS: InsuLIN REG 1unit/0.01ml Soln (100units/ml) SC SCH ×3 (06:14→17:37)
[2023-03-29] MEDS: SODIUM CHLOR 0.9% PF (SALINE LOCK) 10ML VIAL/SYR IV SCH ×3 (06:18→22:00)
[2023-03-29] MEDS: cefTRIAXone 1GM/50ML D5W 50 ML IV SCH (08:13)
[2023-03-29] MEDS: CARVEDILOL 12.5 MG TAB PO SCH ×2 (09:44→22:00)
[2023-03-29] MEDS: FAMOTIDINE (10MG/ML) 2ML VL IV SCH ×2 (09:44→22:00)
[2023-03-29] MEDS: CLOPIDOGREL BISULFATE 75 MG TAB PO SCH (09:44)
[2023-03-29] MEDS: FUROSEMIDE 40 MG/4 ML VIAL IV SCH (09:44)
[2023-03-29] MEDS: AZITHROMYCIN 500MG/ 250ML 250 ML IV SCH (09:45)
[2023-03-29] MEDS: DexAMETHasone SOD PHOS 10MG/1ML VIAL INJ IV SCH (09:45)
[2023-03-29] MEDS: ASPirin 81 mg TAB PO SCH (09:45)
[2023-03-29] MEDS: cloNIDine HCL 0.1 MG TAB PO PRN (12:48)
[2023-03-29 20:02] LABS: COVID19 ANTIGEN SOFIA FIA NEGATIVE (NEGATIVE)
[2023-03-30] VITALS (8 sets, daily range): BP systolic 157–171; BP diastolic 63–69; PULSE 60–78; RESP 16–20; TEMP 97.5–98.1; O2SAT 95–100
[2023-03-30] MEDS ORDERED: hydrALAZINE HCL 20 MG/ML VL IV ONE (05:15)
[2023-03-30] MEDS: SODIUM CHLOR 0.9% PF (SALINE LOCK) 10ML VIAL/SYR IV SCH ×2 (06:00→11:52)
[2023-03-30] MEDS: ACCU-CHEK COMFORT CURVE STRIP VI SCH ×3 (06:05→11:52)
[2023-03-30] MEDS: InsuLIN REG 1unit/0.01ml Soln (100units/ml) SC SCH ×3 (06:14→11:51)
[2023-03-30 07:39] LABS: Alanine Aminotransferase 12 U/L (7-40); Alkaline Phosphatase 44 U/L (46-116); Anion Gap 9 (5-15); Aspartate Aminotransferase 9 U/L (13-40); BUN/Creatinine Ratio 14.6 (10.0-20.0); Blood Urea Nitrogen 55 mg/dL (9-23); Calcium 8.2 mg/dL (8.7-10.4); Carbon Dioxide 24 mmol/L (20-30); Chloride 107 mmol/L (98-107); Glucose 203 mg/dL (74-106); Potassium 3.7 mmol/L (3.5-5.1); Sodium 140 mmol/L (136-145)
[2023-03-30 07:40] LABS: Albumin 3.6 g/dL (3.2-4.8)
[2023-03-30 07:41] LABS: Bilirubin, Total 0.3 mg/dL (0.2-1.0); Total Protein 5.7 g/dL (5.7-8.2)
[2023-03-30] MEDS: cefTRIAXone 1GM/50ML D5W 50 ML IV SCH (09:22)
[2023-03-30] MEDS: ASPirin 81 mg TAB PO SCH (09:26)
[2023-03-30] MEDS: CLOPIDOGREL BISULFATE 75 MG TAB PO SCH (09:26)
[2023-03-30] MEDS: FUROSEMIDE 40 MG/4 ML VIAL IV SCH (09:28)
[2023-03-30] MEDS: FAMOTIDINE (10MG/ML) 2ML VL IV SCH (09:28)
[2023-03-30] MEDS: CARVEDILOL 12.5 MG TAB PO SCH (09:28)
[2023-03-30] MEDS: DexAMETHasone SOD PHOS 10MG/1ML VIAL INJ IV SCH (09:29)
[2023-03-30] MEDS: IPRATROPIUM BROM 0.5 MG/2.5ML INH SOL NEB PRN (09:55)
[2023-03-30] MEDS: ALBUTEROL MEDNEB 2.5 mg/3ml NEB NEB PRN (09:55)
[2023-03-30] MEDS ORDERED: AZITHROMYCIN 250 MG TAB PO SCH (10:00)
[2023-03-30] MEDS: cloNIDine HCL 0.1 MG TAB PO PRN (10:16)
== END 2023-03-30 13:20 | DRG 177 ==
LOC: ER 14:59 → EDBD 14:59 → TELE 22:55 → TELE-WESTW 03-28 08:28
PROVIDERS: ADMIT Nurse Practitioner Family; ATTEND Family Medicine
DX: J15.69 Pneumonia due to other Gram-negative bacteria (principal); I21.A1 Myocardial infarction type 2; I50.43 Acute on chronic combined systolic (congestive) and diastolic (congestive) heart failure; J96.21 Acute and chronic respiratory failure with hypoxia; N17.0 Acute kidney failure with tubular necrosis; I13.0 Hypertensive heart and chronic kidney disease with heart failure and stage 1 through stage 4 chronic kidney disease, or unspecified chronic kidney disease; J44.1 Chronic obstructive pulmonary disease with (acute) exacerbation; J44.0 Chronic obstructive pulmonary disease with (acute) lower respiratory infection; N18.4 Chronic kidney disease, stage 4 (severe); J15.9 Unspecified bacterial pneumonia; Z20.822 Contact with and (suspected) exposure to COVID-19; E11.22 Type 2 diabetes mellitus with diabetic chronic kidney disease; E11.65 Type 2 diabetes mellitus with hyperglycemia; E66.9 Obesity, unspecified; F02.80 Dementia in other diseases classified elsewhere, unspecified severity, without behavioral disturbance, psychotic disturbance, mood disturbance, and anxiety; H91.90 Unspecified hearing loss, unspecified ear; G30.9 Alzheimer's disease, unspecified; D72.829 Elevated white blood cell count, unspecified; E78.5 Hyperlipidemia, unspecified; D63.1 Anemia in chronic kidney disease; Z86.73 Personal history of transient ischemic attack (TIA), and cerebral infarction without residual deficits; Z87.891 Personal history of nicotine dependence; Z68.37 Body mass index [BMI] 37.0-37.9, adult; Z88.7 Allergy status to serum and vaccine
CPT/HCPCS: 36415; 71045; 76775; 78582; 80053; 81001; 82306; 82570; 82962; 83036; 83690; 83735; 83880; 83935; 83970; 84100; 84156; 84300; 84484; 85025; 85379; 87426; 93005; 93306; 93970; 94640; 96365; 96367; 96375; 97163; G0378; J0696; J1100; J1815; J3490; J7060

== ENCOUNTER 2023-12-21 10:43 | Inpatient (IN) | payer MEDICARE ==
[~2023-12-21] VITALS: Ht 167.6 cm; Wt 98.8 kg
[~2023-12-21 10:43] MED LIST changes: +POTA-36 PO; -POTA10TA51 PO
[2023-12-21] MEDS: methylPREDNISolone SOD SUCC 125 MG/2 ML VL IV ONE (11:34)
[2023-12-21 11:38] LABS: Basophils # (auto) 0 10 ^3/uL (0-0.2); Basophils % (auto) 0.2 % (0.0-2.0); Eosinophils # (auto) 0 10 ^3/uL (0-0.8); Eosinophils % (auto) 0.1 % (0.0-7.0); Hematocrit 24.5 % (41.0-53.0); Hemoglobin 8.2 g/dL (13.5-17.5); Lymphocytes # (auto) 1.6 10 ^3/uL (0.4-5.4); Lymphocytes % (auto) 12.3 % (10.0-50.0); Mean Corpuscular Hemoglobin 31.9 pg (28.0-32.0); Mean Corpuscular Hgb Conc. 33.5 g/dL (32.0-36.0); Mean Corpuscular Volume 95.3 fL (80.0-100.0); Monocytes # (auto) 1.1 10 ^3/uL (0-1.3); Monocytes % (auto) 8.3 % (0.0-12.0); Neutrophils # (auto) 10.6 10 ^3/uL (1.6-8.6); Neutrophils % (auto) 79.1 % (37.0-80.0); Red Blood Cells 2.57 10^6/uL (4.5-5.90); Red Cell Distribution Width 14.8 % (11.8-14.3); White Blood Cell 13.4 10^3/uL (4.4-10.8)
[2023-12-21 11:55] LABS: Anion Gap 10 (5-15); Carbon Dioxide 25 mmol/L (20-30); Chloride 103 mmol/L (98-107); Potassium 3.9 mmol/L (3.5-5.1); Sodium 138 mmol/L (136-145)
[2023-12-21 11:56] LABS: Calcium 9.2 mg/dL (8.7-10.4)
[2023-12-21 12:00] LABS: Glucose 243 mg/dL (74-106); Uric Acid 8.2 mg/dL (3.7-9.2)
[2023-12-21 12:01] LABS: BUN/Creatinine Ratio 14.2 (10.0-20.0); Blood Urea Nitrogen 72 mg/dL (9-23)
[2023-12-21 12:15] LABS: Lactic Acid w/Reflex 2.1 mmol/L (0.4-2.0)
[2023-12-21] MEDS ORDERED: traMADol HCL 50 MG TAB PO PRN (14:15)
[2023-12-21] MEDS ORDERED: ONDANSETRON HCL 4 MG/2 ML VIAL IV PRN (14:15)
[2023-12-21] MEDS ORDERED: NITROGLYCERIN 0.4 MG SL TAB SL PRN (14:15)
[2023-12-21] MEDS ORDERED: TEMAZEPAM 15 MG CAP PO PRN (14:15)
[2023-12-21] MEDS ORDERED: DOCUSATE SOD 100 MG CAP PO PRN (14:15)
[2023-12-21 14:32] VITALS: PULSE 68; RESP 16; O2SAT 96
[2023-12-21] MEDS: cefTRIAXone 1GM/50ML D5W 50 ML IV ONE (14:59)
[2023-12-21] MEDS: SODIUM CHLORIDE 0.9% 1,000 ML IV ONE (15:00)
[2023-12-21] MEDS: ENOXAPARIN SOD 30 MG/0.3 ML SYRINGE SC SCH (15:06)
[2023-12-21 23:44] VITALS: BP 207/61; PULSE 64; RESP 18; TEMP 97.8; O2SAT 96
[2023-12-22] VITALS (9 sets, daily range): BP systolic 149–207; BP diastolic 50–105; PULSE 56–66; RESP 16–20; TEMP 97.6–98.3; O2SAT 92–98
[2023-12-22] MEDS: MORPHINE SULFATE INJ 2 MG/ml SYRG IV PRN (00:04)
[2023-12-22] MEDS ORDERED: DEXTROSE (50%) 50ML SYRG IV PRN (01:15)
[2023-12-22] MEDS: hydrALAZINE HCL 20 MG/ML VL IV ONE (01:35)
[2023-12-22 03:08] LABS: Creatinine, Urine 59.32 mg/dL (30.0-125.0)
[2023-12-22] MEDS: ACCU-CHEK COMFORT CURVE STRIP VI SCH (06:11)
[2023-12-22] MEDS: InsuLIN REG 1unit/0.01ml Soln (100units/ml) SC SCH (06:13)
[2023-12-22 06:18] LABS: Basophils # (auto) 0 10 ^3/uL (0-0.2); Eosinophils # (auto) 0 10 ^3/uL (0-0.8); Hemoglobin 8.1 g/dL (13.5-17.5); White Blood Cell 11.9 10^3/uL (4.4-10.8)
[2023-12-22 06:20] LABS: Basophils % (auto) 0.3 % (0.0-2.0); Lymphocytes # (auto) 1.1 10 ^3/uL (0.4-5.4); Lymphocytes % (auto) 9.5 % (10.0-50.0); Mean Corpuscular Hemoglobin 31.8 pg (28.0-32.0); Mean Corpuscular Hgb Conc. 33.7 g/dL (32.0-36.0); Mean Corpuscular Volume 94.3 fL (80.0-100.0); Monocytes # (auto) 1.2 10 ^3/uL (0-1.3); Monocytes % (auto) 9.8 % (0.0-12.0); Neutrophils # (auto) 9.6 10 ^3/uL (1.6-8.6); Neutrophils % (auto) 80.4 % (37.0-80.0); Nucleated Red Blood Cells % 0.1 %; Red Blood Cells 2.54 10^6/uL (4.5-5.90); Red Cell Distribution Width 14.1 % (11.8-14.3)
[2023-12-22 06:40] LABS: Albumin 3.9 g/dL (3.2-4.8); Alkaline Phosphatase 35 U/L (46-116); Anion Gap 11 (5-15); Aspartate Aminotransferase 14 U/L (13-40); Blood Urea Nitrogen 79 mg/dL (9-23); Calcium 9.3 mg/dL (8.7-10.4); Carbon Dioxide 24 mmol/L (20-30); Chloride 105 mmol/L (98-107); Glucose 186 mg/dL (74-106); Potassium 3.9 mmol/L (3.5-5.1); Sodium 140 mmol/L (136-145)
[2023-12-22 06:41] LABS: Bilirubin, Total 0.2 mg/dL (0.2-1.0); Total Protein 6.5 g/dL (5.7-8.2)
[2023-12-22 06:44] LABS: Alanine Aminotransferase 9 U/L (7-40)
[2023-12-22] MEDS: cloNIDine HCL 0.1 MG TAB PO PRN (06:51)
[2023-12-22] MEDS: cefTRIAXone 1GM/50ML D5W 50 ML IV SCH (09:20)
[2023-12-22] MEDS: SODIUM CHLORIDE 0.9% 1,000 ML IV ONE (10:45)
[2023-12-22] MEDS: methylPREDNISolone SOD SUCC 125 MG/2 ML VL IV ONE (14:17)
[2023-12-22] MEDS: ALLOPURINOL 100 MG TAB PO ONE (14:17)
[2023-12-22] MEDS: COLCHICINE 0.6 MG CAP PO ONE (17:20)
[2023-12-22] MEDS: METOPROLOL TARTRATE 50 MG TAB PO SCH (21:55)
[2023-12-23] VITALS (9 sets, daily range): BP systolic 148–186; BP diastolic 57–91; PULSE 53–61; RESP 18–20; TEMP 97.6–98.2; O2SAT 94–97
[2023-12-23] MEDS: methylPREDNISolone SOD SUCC 125 MG/2 ML VL IV SCH (09:23)
[2023-12-23 10:11] LABS: Basophils # (auto) 0 10 ^3/uL (0-0.2); Eosinophils # (auto) 0 10 ^3/uL (0-0.8); Mean Corpuscular Volume 94.8 fL (80.0-100.0); Monocytes # (auto) 0.6 10 ^3/uL (0-1.3)
[2023-12-23 10:13] LABS: Hematocrit 24.9 % (41.0-53.0); Hemoglobin 8.2 g/dL (13.5-17.5); Lymphocytes # (auto) 0.9 10 ^3/uL (0.4-5.4); Lymphocytes % (auto) 6.6 % (10.0-50.0); Mean Corpuscular Hemoglobin 31.2 pg (28.0-32.0); Mean Corpuscular Hgb Conc. 32.9 g/dL (32.0-36.0); Monocytes % (auto) 4.7 % (0.0-12.0); Neutrophils # (auto) 11.4 10 ^3/uL (1.6-8.6); Neutrophils % (auto) 88.7 % (37.0-80.0); Red Blood Cells 2.62 10^6/uL (4.5-5.90); Red Cell Distribution Width 14.4 % (11.8-14.3); White Blood Cell 12.9 10^3/uL (4.4-10.8)
[2023-12-23 10:26] LABS: Anion Gap 12 (5-15); Carbon Dioxide 22 mmol/L (20-30); Chloride 102 mmol/L (98-107); Potassium 3.9 mmol/L (3.5-5.1); Sodium 136 mmol/L (136-145)
[2023-12-23 10:28] LABS: Calcium 9.3 mg/dL (8.7-10.4)
[2023-12-23 10:33] LABS: BUN/Creatinine Ratio 18.3 (10.0-20.0)
[2023-12-23 10:36] LABS: Glucose 286 mg/dL (74-106)
[2023-12-23 10:37] LABS: Blood Urea Nitrogen 87 mg/dL (9-23)
[2023-12-24 01:00] VITALS: BP 165/65; PULSE 57; RESP 20; TEMP 97.8; O2SAT 95
[2023-12-24 05:00] VITALS: BP 105/66; PULSE 55; RESP 20; TEMP 97.6; O2SAT 94
[2023-12-24] MEDS: ALLOPURINOL 100 MG TAB PO SCH (08:32)
[2023-12-24 09:00] VITALS: BP 179/56; PULSE 52; RESP 20; TEMP 97.9; O2SAT 97
[2023-12-24 12:27] VITALS: BP 150/42; PULSE 60; RESP 20; TEMP 98; O2SAT 98
[2023-12-24 14:56] LABS: Mean Corpuscular Volume 94.3 fL (80.0-100.0)
[2023-12-24 14:58] LABS: Hematocrit 24.2 % (41.0-53.0); Mean Corpuscular Hemoglobin 31.3 pg (28.0-32.0); Mean Corpuscular Hgb Conc. 33.2 g/dL (32.0-36.0); Red Blood Cells 2.56 10^6/uL (4.5-5.90); Red Cell Distribution Width 14.1 % (11.8-14.3); White Blood Cell 12.1 10^3/uL (4.4-10.8)
[2023-12-24 15:01] LABS: Band Neutrophils % (manual) 0; Basophils % (manual) 0 (0.0-2.0); Blast Cells 0; Eosinophils % (manual) 0 (0-7); Metamyelocytes % 0; Myelocytes % 0; Promyelocytes % 0; Reactive Lymphocytes 0
[2023-12-24 15:08] LABS: Chloride 102 mmol/L (98-107); Potassium 4.3 mmol/L (3.5-5.1); Sodium 137 mmol/L (136-145)
[2023-12-24 15:09] LABS: Anion Gap 11 (5-15); Calcium 9.3 mg/dL (8.7-10.4); Carbon Dioxide 24 mmol/L (20-30)
[2023-12-24 15:13] LABS: Lymphocytes % (manual) 3 (10.0-50.0); Monocytes % (manual) 1 (0-12)
[2023-12-24 15:14] LABS: Glucose 306 mg/dL (74-106); Platelet Estimate Adequate; RBC Morphology Normal
[2023-12-24 15:15] LABS: Magnesium 2.3 mg/dL (1.6-2.6)
[2023-12-24 15:17] LABS: BUN/Creatinine Ratio 22.1 (10.0-20.0); Phosphorus 4.4 mg/dL (2.4-5.1)
[2023-12-24 15:18] LABS: Blood Urea Nitrogen 101 mg/dL (9-23)
[2023-12-24 15:21] LABS: INR 1.03 (0.9-1.15); Partial Thromboplastin Time 27.6 SEC (24.5-34.5); Prothrombin Time 10.9 sec (9.3-11.8)
[2023-12-24 17:00] VITALS: BP 162/46; PULSE 51; RESP 16; TEMP 97.7; O2SAT 94
[2023-12-24 21:00] VITALS: BP 162/81; PULSE 60; RESP 19; TEMP 97.1; O2SAT 97
[2023-12-25 01:00] VITALS: BP 148/62; PULSE 61; RESP 18; TEMP 97.3; O2SAT 96
[2023-12-25 05:00] VITALS: BP 119/68; PULSE 55; RESP 19; O2SAT 96
[2023-12-25 05:13] LABS: Calcium 8.9 mg/dL (8.7-10.4); Chloride 105 mmol/L (98-107); Sodium 138 mmol/L (136-145)
[2023-12-25 05:14] LABS: Anion Gap 10 (5-15); Basophils # (auto) 0 10 ^3/uL (0-0.2); Basophils % (auto) 0.1 % (0.0-2.0); Carbon Dioxide 23 mmol/L (20-30); Eosinophils # (auto) 0 10 ^3/uL (0-0.8); Hemoglobin 7.8 g/dL (13.5-17.5); Monocytes # (auto) 0.8 10 ^3/uL (0-1.3); Monocytes % (auto) 7.8 % (0.0-12.0); Red Cell Distribution Width 14.4 % (11.8-14.3)
[2023-12-25 05:18] LABS: Hematocrit 23.3 % (41.0-53.0); Lymphocytes % (auto) 9.7 % (10.0-50.0); Mean Corpuscular Hemoglobin 31.9 pg (28.0-32.0); Mean Corpuscular Hgb Conc. 33.6 g/dL (32.0-36.0); Mean Corpuscular Volume 94.8 fL (80.0-100.0); Neutrophils # (auto) 8.2 10 ^3/uL (1.6-8.6); Neutrophils % (auto) 82.4 % (37.0-80.0); Red Blood Cells 2.45 10^6/uL (4.5-5.90); White Blood Cell 9.9 10^3/uL (4.4-10.8)
[2023-12-25 05:19] LABS: BUN/Creatinine Ratio 19.5 (10.0-20.0); Glucose 229 mg/dL (74-106)
[2023-12-25 05:20] LABS: Magnesium 2.4 mg/dL (1.6-2.6)
[2023-12-25 05:21] LABS: Phosphorus 5.1 mg/dL (2.4-5.1)
[2023-12-25 05:37] LABS: Blood Urea Nitrogen 91 mg/dL (9-23)
[2023-12-25 06:39] LABS: COVID19 ANTIGEN SOFIA FIA NEGATIVE (NEGATIVE)
[2023-12-25 08:59] VITALS: BP 191/77; PULSE 58; RESP 17; TEMP 96.9; O2SAT 98
[2023-12-25] MEDS ORDERED: cloNIDine HCL 0.1 MG TAB PO PRN (09:30)
[2023-12-25] MEDS ORDERED: ZOLPIDEM TARTRATE 5 MG TAB PO PRN (09:30)
[2023-12-25 10:41] LABS: % Iron Saturation 44.2 % (20-55)
[2023-12-25 13:00] VITALS: BP 132/54; PULSE 52; RESP 16; TEMP 97.9; O2SAT 98
[2023-12-25 16:42] VITALS: BP 153/66; PULSE 52; RESP 18; TEMP 98.1; O2SAT 98
[2023-12-25] MEDS ORDERED: FERROUS SULFATE 325mg EC TAB PO SCH (18:00)
== END 2023-12-25 16:19 | DRG 872 ==
LOC: ER 10:43 → EDBD 10:43 → OVERFLOW 14:20 → WEST WING 23:15
PROVIDERS: ADMIT Nurse Practitioner Family; ATTEND Family Medicine
DX: A41.9 Sepsis, unspecified organism (principal); L03.114 Cellulitis of left upper limb; L03.116 Cellulitis of left lower limb; N17.9 Acute kidney failure, unspecified; I13.2 Hypertensive heart and chronic kidney disease with heart failure and with stage 5 chronic kidney disease, or end stage renal disease; N18.5 Chronic kidney disease, stage 5; I16.1 Hypertensive emergency; E87.20 Acidosis, unspecified; K21.9 Gastro-esophageal reflux disease without esophagitis; I50.9 Heart failure, unspecified; E11.22 Type 2 diabetes mellitus with diabetic chronic kidney disease; E11.65 Type 2 diabetes mellitus with hyperglycemia; D64.9 Anemia, unspecified; M1A.9XX0 Chronic gout, unspecified, without tophus (tophi); Z66 Do not resuscitate; G30.9 Alzheimer's disease, unspecified; F02.80 Dementia in other diseases classified elsewhere, unspecified severity, without behavioral disturbance, psychotic disturbance, mood disturbance, and anxiety; Z85.828 Personal history of other malignant neoplasm of skin; Z79.4 Long term (current) use of insulin; Z79.899 Other long term (current) drug therapy
CPT/HCPCS: 36415; 71046; 73110; 76775; 80048; 80053; 82306; 82570; 82607; 82962; 83036; 83540; 83550; 83605; 83735; 84100; 84156; 84300; 84443; 84550; 85007; 85025; 85027; 85610; 85730; 87040; 87426; 93005; 93971; 96374; 97110; 97116; 97163; 97530; G0378; J1815